=== PATIENT | male | born 1980 | race Caucasian/White ===

== ENCOUNTER 2020-10-09 15:51 | Emergency (ER) | payer OTHER ==
[2020-10-09 15:55] VITALS: BP 136/86
[2020-10-09] MEDS ORDERED: IBUP-2070 PO (17:02)
[2020-10-09] MEDS ORDERED: KETOROLAC 60 MG VIAL (30MG/ML) IM ONE (17:41)
[2020-10-09 18:30] VITALS: BP 128/84
== END 2020-10-09 18:36 | disposition home or self-care (01) ==
LOC: EDH 15:51
DX: S52.101A Unspecified fracture of upper end of right radius, initial encounter for closed fracture (principal); S50.01XA Contusion of right elbow, initial encounter; Z79.1 Long term (current) use of non-steroidal anti-inflammatories (NSAID); W01.0XXA Fall on same level from slipping, tripping and stumbling without subsequent striking against object, initial encounter; Y93.89 Activity, other specified; Y92.89 Other specified places as the place of occurrence of the external cause; Y99.8 Other external cause status
CPT/HCPCS: 73070